=== PATIENT | female | born 1940 | race Caucasian/White ===

== ENCOUNTER 2017-07-17 14:00 | Emergency (ER) | payer MEDICARE, BC ==
--- NOTE | 2017-07-17 14:13 | EDM.PDOC ---
ED HPI GENERAL MEDICAL PROBLEM - General Chief Complaint: Upper Extremity Injury/Pain Stated Complaint: left shoulder pain Time Seen by Provider: 07/17/17 14:08 Source of Information: Reports: Patient History Limitations: Reports: No Limitations - History of Present Illness INITIAL COMMENTS - FREE TEXT/NARRATIVE: This patient is a 76 year old female that presents to the ER. Patient reports that she was in the kitchen last night and slipped on one of their rugs. Patient reports she fell to the floor and landed on her left arm. Patient reports having left arm pain. Patient has her arm a home made sling. Patient has left arm in an arm sling position. Patient denies hitting head, loc, n, v, vision changes. Patient denies neck pain. Denies any other pain locations other than left upper/mid arm. Pulses +2, cap refill <2 sec, sensory intact. Neurovascular intact. Motion limited to the left shoulder due to pain of the humerus location. Onset Date: 07/16/17 Location: Reports: Upper Extremity, Left Severity: Mild Improves with: Reports: Immobilization Worsens with: Reports: Movement Associated Symptoms: Denies: Confusion, Chest Pain, Cough, cough w sputum, Diaphoresis, Fever/Chills, Headaches, Loss of Appetite, Malaise, Nausea/Vomiting , Rash, Seizure, Shortness of Breath, Syncope, Weakness Left Upper Arm Pain Score (Numeric/FACES): 7 - Related Data Allergies Allergy/AdvReac Type Severity Reaction Status Date / Time No Known Allergies Allergy Verified 07/17/17 14:10 Home Meds: Home Meds Albuterol [Ventolin HFA] 2 puff INH QID 07/17/17 [History] Aspirin [Halfprin] 81 mg PO DAILY 07/17/17 [History] Clopidogrel Bisulfate [Clopidogrel] 75 mg PO DAILY 07/17/17 [History] Cyanocobalamin (Vitamin B-12) [B-12 Compliance] 2,000 mcg IJ Q30D 07/17/17 [ History] Folic Acid 1 mg PO DAILY 07/17/17 [History] Losartan Potassium 100 mg PO DAILY 07/17/17 [History] Metoprolol Succinate 50 mg PO DAILY 07/17/17 [History] Simvastatin [Zocor] 40 mg PO BEDTIME 07/17/17 [History] Triamterene/Hydrochlorothiazid [Triamterene-HCTZ 37.5-25 MG] 1 each PO DAILY [History] Review of Systems - Review of Systems Review Of Systems: See Below Constitutional: Reports: No Symptoms Eyes: Reports: No Symptoms Ears: Reports: No Symptoms Nose: Reports: No Symptoms Mouth/Throat: Reports: No Symptoms Respiratory: Reports: No Symptoms Cardiovascular: Reports: No Symptoms GI/Abdominal: Reports: No Symptoms Genitourinary: Reports: No Symptoms Musculoskeletal: Reports: Arm Pain (left upper arm pain) Skin: Reports: No Symptoms Neurological: Reports: No Symptoms Psychiatric: Reports: No Symptoms ED EXAM, GENERAL - Physical Exam Exam: See Below Exam Limited By: No Limitations General Appearance: Alert, WD/WN, No Apparent Distress Eye Exam: Bilateral Eye: EOMI, Normal Inspection, PERRL Ears: Normal External Exam, Normal Canal, Hearing Grossly Normal, Normal TMs Ear Exam: Bilateral Ear: Auricle Normal, Canal Normal, TM normal Nose: Normal Inspection, Normal Mucosa, No Blood Throat/Mouth: Normal Inspection, Normal Lips, Normal Teeth, Normal Gums, Normal Oropharynx, Normal Voice, No Airway Compromise Head: Atraumatic, Normocephalic Neck: Normal Inspection, Supple, Non-Tender, Full Range of Motion Respiratory/Chest: No Respiratory Distress, Lungs Clear, Normal Breath Sounds, No Accessory Muscle Use Cardiovascular: Normal Peripheral Pulses, Regular Rate, Rhythm, No Edema, No Gallop, No JVD, No Murmur, No Rub Peripheral Pulses: 2+: Radial (L), Radial (R) GI/Abdominal: Soft, Non-Tender Back Exam: Normal Inspection, Full Range of Motion. No: CVA Tenderness (L), CVA Tenderness (R), Decreased Range of Motion, Muscle Spasm, Paraspinal Tenderness, Vertebral Tenderness Extremities: No Pedal Edema, Normal Capillary Refill, Limited Range of Motion ( due to pain left shoulder. ), Other (left arm in arm sling position. Pain, tenderness to central and proximal 1/3 humerus. ) Neurological: Alert, Oriented, Normal Gait, No Motor/Sensory Deficits Psychiatric: Normal Affect, Normal Mood Skin Exam: Warm, Dry, Intact, Normal Color, No Rash Lymphatic: No Adenopathy Course - Vital Signs Last Recorded V/S: Last Vital Signs Temp 96.7 F 07/17/17 14:03 Pulse 67 07/17/17 14:03 Resp 16 07/17/17 14:03 BP 161/78 H 07/17/17 14:03 Pulse Ox 95 07/17/17 14:03 - Orders/Labs/Meds Orders: Active Orders 24 hr Category Date Time Status Humerus Lt [CR] Stat Exams 07/17/17 14:08 Taken Meds: Medications Discontinued Medications Generic Name Dose Route Start Last Admin Trade Name Freq PRN Reason Stop Dose Admin Hydrocodone Bitart/Acetaminophen 3 packet 07/17/17 14:15 Take Home: Acetaminophen/Hydrocod, 2 Tab Pack PO 07/17/17 14:16 ONETIME ONE Hydrocodone Bitart/Acetaminophen 1 tab 07/17/17 14:15 [place] 325-5 Mg PO 07/17/17 14:16 ONETIME ONE - Radiology Interpretation Free Text/Narrative:: left humerus: Fx left humeral head. Not displaced. No dislocation. Departure - Departure Time of Disposition: 14:39 Disposition: Home, Self-Care 01 Condition: Good Clinical Impression: Fracture of humerus Qualifiers: Encounter type: initial encounter Humerus Location: proximal Fracture type: closed Fracture morphology: unspecified fracture morphology Laterality: left Qualified Code(s): S42.202A - Unspecified fracture of upper end of left humerus , initial encounter for closed fracture - Discharge Information Instructions: Humerus Fracture Treated With Immobilization Forms: ED Department Discharge Additional Instructions: Followup with your primary care provider Followup with orthopedic by calling [facility] or [facility] for appointment Return to the ER for worsening of condition or any emergent concerns Rest Ice Elevate Arm sling Naproxen or Motrin for pain as needed - My Orders Last 24 Hours: My Active Orders 07/17/17 14:08 Humerus Lt [CR] Stat - Assessment/Plan Last 24 Hours: My Active Orders 07/17/17 14:08 Humerus Lt [CR] Stat Plan: PLEASE SEE RN NOTE FOR PFSH.
[2017-07-17] MEDS ORDERED: Acetaminophen/HYDROcodone 325-5 MG Tab PO ONE (14:15)
[2017-07-17] MEDS ORDERED: Take Home: Acetaminophen/HYDROcodone 325-5 MG, 2 Tab Pack PO ONE (14:15)
== END 2017-07-17 14:55 | disposition home or self-care (01) ==
LOC: CC.ED 14:00
DX: S42.202A Unspecified fracture of upper end of left humerus, initial encounter for closed fracture (principal); Z79.82 Long term (current) use of aspirin; Z79.899 Other long term (current) drug therapy; W01.0XXA Fall on same level from slipping, tripping and stumbling without subsequent striking against object, initial encounter; Y92.000 Kitchen of unspecified non-institutional (private) residence as the place of occurrence of the external cause
CPT/HCPCS: 73060-LT; 99283

== ENCOUNTER 2017-08-22 11:48 | Emergency (ER) | payer MEDICARE, BC ==
--- NOTE | 2017-08-22 12:09 | EDM.PDOC ---
ED HPI GENERAL MEDICAL PROBLEM - General Chief Complaint: Skin Complaint Stated Complaint: redness to left arm Time Seen by Provider: 08/22/17 11:55 Source of Information: Reports: Patient History Limitations: Reports: No Limitations - History of Present Illness INITIAL COMMENTS - FREE TEXT/NARRATIVE: Has had rash to the anticubital area of the left arm. She Has fracture of the left humerus and has had arm in a sling and she has noted over the last week or more this rash is red and seems to be spreading. Not warm to touch. Does itch and burn at times. No open areas or bleeding to the area. She denies any fever with this. States that the arm pain has improved since falling. Onset: Gradual Quality: Reports: Burning, Other (itching) - Related Data Allergies Allergy/AdvReac Type Severity Reaction Status Date / Time No Known Allergies Allergy Verified 08/22/17 11:50 Home Meds: Home Meds Albuterol [Ventolin HFA] 2 puff INH QID PRN 07/17/17 [History] Aspirin [Halfprin] 81 mg PO DAILY 07/17/17 [History] Clopidogrel Bisulfate [Clopidogrel] 75 mg PO DAILY 07/17/17 [History] Cyanocobalamin (Vitamin B-12) [B-12 Compliance] 2,000 mcg IJ Q30D 07/17/17 [ History] Folic Acid 1 mg PO DAILY 07/17/17 [History] Losartan Potassium 100 mg PO DAILY 07/17/17 [History] Metoprolol Succinate 50 mg PO DAILY 07/17/17 [History] Simvastatin [Zocor] 40 mg PO DAILY 07/17/17 [History] Triamterene/Hydrochlorothiazid [Triamterene-HCTZ 37.5-25 MG] 1 each PO DAILY [History] Cholecalciferol (Vitamin D3) [Vitamin D3] 5,000 unit PO DAILY 08/22/17 [History] Past Medical History Musculoskeletal History: Reports: Other (See Below) (fracture of left humerus) Social & Family History - Tobacco Use Smoking Status *Q: Current Every Day Smoker Years of Tobacco use: 55 Packs/Tins Daily: 1 - Caffeine Use Caffeine Use: Reports: Coffee - Alcohol Use Days Per Week of Alcohol Use: 7 Number of Drinks Per Day: 2 Total Drinks Per Week: 14 - Recreational Drug Use Recreational Drug Use: Yes ED ROS GENERAL - Review of Systems Review Of Systems: See Below Constitutional: Reports: No Symptoms HEENT: Reports: No Symptoms Respiratory: Reports: No Symptoms Cardiovascular: Reports: No Symptoms GI/Abdominal: Reports: No Symptoms : Reports: No Symptoms Musculoskeletal: Reports: Other (fracture of left humerus) Skin: Reports: Rash (to the left anticubital area.) Neurological: Reports: No Symptoms ED EXAM, SKIN/RASH Exam: See Below Exam Limited By: No Limitations General Appearance: Alert, WD/WN, No Apparent Distress Respiratory/Chest: No Respiratory Distress, Lungs Clear, Normal Breath Sounds Cardiovascular: Normal Peripheral Pulses, Regular Rate, Rhythm, No Edema Skin: Warm, Dry, Intact, Rash (red, non raised rash to the anticubital area of the left arm. Sensitive to touch. No open areas or bleeding.) Course - Vital Signs Last Recorded V/S: Last Vital Signs Temp 97.5 F 08/22/17 11:50 Pulse 66 08/22/17 11:50 Resp 18 08/22/17 11:50 BP 151/73 H 08/22/17 11:50 Pulse Ox 96 08/22/17 11:50 Departure - Departure Time of Disposition: 12:10 Disposition: Home, Self-Care 01 Condition: Good Clinical Impression: Contact dermatitis Qualifiers: Contact dermatitis type: irritant Contact dermatitis trigger: unspecified trigger Qualified Code(s): L24.9 - Irritant contact dermatitis, unspecified cause - Discharge Information Instructions: Rash, Pruritus Additional Instructions: use hydrocortsone twice a day use bendadryl cream twice a day. Alternate with the hydrocortisone cream. Keep wash cloth or other fabric between the folds of skin to keep dry and prevent further irritation. - Problem List & Annotations (1) Contact dermatitis SNOMED Code(s): 67913978 Code(s): L25.9 - UNSPECIFIED CONTACT DERMATITIS, UNSPECIFIED CAUSE Status: Acute Priority: High Qualifiers: Contact dermatitis type: irritant Contact dermatitis trigger: unspecified trigger Qualified Code(s): L24.9 - Irritant contact dermatitis, unspecified cause - Problem List Review Problem List Initiated/Reviewed/Updated: Yes
== END 2017-08-22 12:27 | disposition home or self-care (01) ==
LOC: CC.ED 11:48
DX: L24.9 Irritant contact dermatitis, unspecified cause (principal); Z79.899 Other long term (current) drug therapy; F17.210 Nicotine dependence, cigarettes, uncomplicated
CPT/HCPCS: 99282

== ENCOUNTER 2017-11-08 16:09 | Observation (INO) | payer MEDICARE, BC ==
[2017-11-08 17:01] LABS: CHLORIDE,CL 104 mEq/L (98-106); SODIUM,NA 141 mEq/L (136-145)
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
[2017-11-08] MEDS ORDERED: Sodium Chloride 0.9% 10 ML Syringe FLUSH PRN (18:33)
[2017-11-08] MEDS ORDERED: Temazepam 15 MG Cap PO PRN (18:33)
[2017-11-08] MEDS ORDERED: Lactated Ringers 1,000 ML IV SCH (18:33)
[2017-11-08] MEDS ORDERED: Acetaminophen 325 MG Tab PO PRN (18:33)
[2017-11-08] MEDS ORDERED: Promethazine 25 MG in Sodium Chloride 0.9% 50 ML IV PRN (18:33)
[2017-11-08] MEDS ORDERED: Magnesium Hydroxide 400 MG/5 ML Susp 30 ML Cup PO PRN (18:33)
[2017-11-08] MEDS ORDERED: Enoxaparin 40 MG/0.4 ML Syringe SUBCUT SCH (18:33)
[2017-11-08] MEDS ORDERED: Meclizine 12.5 MG Tab PO PRN (18:33)
[2017-11-08] MEDS ORDERED: Ondansetron 4 MG Tab.DIS PO PRN (18:33)
[2017-11-08] MEDS ORDERED: Albuterol 8 GM Inhaler INH PRN (20:04)
[2017-11-08] MEDS ORDERED: CYANOCOBALAMIN 2000 MCG IJ SCH (20:15)
[2017-11-08] MEDS ORDERED: [UNRECOGNIZED DRUG - OTHER] IJ SCH (20:15)
[2017-11-08] MEDS: Losartan 100 MG Tab**OWN MED PO SCH (22:17)
[2017-11-08] MEDS: METOPROLOL SUCCINATE 50 MG PO SCH (22:18)
[2017-11-09] MEDS ORDERED: HYDROCHLOROTHIAZID PO SCH (08:00)
[2017-11-09] MEDS ORDERED: Aspirin 81 MG Tab.EC**OWN MED PO SCH (08:00)
[2017-11-09] MEDS ORDERED: Cholecalciferol (Vitamin D3) 1,000 Unit Tab PO SCH (08:00)
[2017-11-09] MEDS ORDERED: Simvastatin 40 MG Tab**OWN MED PO SCH (08:00)
[2017-11-09] MEDS ORDERED: Folic Acid 1 MG Tab**OWN MED PO SCH (08:00)
[2017-11-09] MEDS ORDERED: TRIAMTERENE PO SCH (08:00)
[2017-11-09] MEDS ORDERED: Clopidogrel 75 MG Tab**OWN MED PO SCH (08:00)
[2017-11-09 08:06] LABS: CHLORIDE,CL 108 mEq/L (98-106); SODIUM,NA 143 mEq/L (136-145)
[2017-11-09] MEDS: Losartan 100 MG Tab**OWN MED PO SCH (08:20)
[2017-11-09] MEDS: METOPROLOL SUCCINATE 50 MG PO SCH (08:20)
--- NOTE | 2017-11-09 08:53 | PN ---
DATE: 11/09/2017 S: La Ya came in with marked dizziness. CT of the head was normal. O: NECK: Supple. CHEST: Clear. CARDIAC: Regular. 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 P: PT and appropriate treatment. KASEY /[id number]
[2017-11-09] MEDS ORDERED: Cyanocobalamin (Vitamin B12) 1,000 MCG/ML SDV SUBCUT SCH (09:00)
--- NOTE | 2017-11-09 11:35 | PCM.DCSUM1 ---
Discharge Summary - Discharge Data Discharge Date: 11/09/17 Discharge Disposition: Home, Self-Care 01 Condition: Good - Discharge Diagnosis/Problem(s) (1) Vertigo SNOMED Code(s): 004064836 ICD Code: R42 - DIZZINESS AND GIDDINESS Status: Acute Priority: High Current Visit: Yes - Discharge Plan Home Medications: Home Meds Albuterol [Ventolin HFA] 2 puff INH QID PRN 07/17/17 [History] Aspirin [Halfprin] 81 mg PO DAILY 07/17/17 [History] Clopidogrel Bisulfate [Clopidogrel] 75 mg PO DAILY 07/17/17 [History] Cyanocobalamin (Vitamin B-12) [B-12 Compliance] 2,000 mcg IJ Q30D 07/17/17 [ History] Folic Acid 1 mg PO DAILY 07/17/17 [History] Losartan Potassium 100 mg PO DAILY 07/17/17 [History] Metoprolol Succinate 50 mg PO DAILY 07/17/17 [History] Simvastatin [Zocor] 40 mg PO DAILY 07/17/17 [History] Triamterene/Hydrochlorothiazid [Triamterene-HCTZ 37.5-25 MG] 1 each PO DAILY [History] Cholecalciferol (Vitamin D3) [Vitamin D3] 5,000 unit PO DAILY 08/22/17 [History] Patient Handouts: Benign Positional Vertigo, Vertigo, [id number] Forms: ED Department Discharge Referrals: Harrison Banks MD [Primary Care Provider] - - Patient Data Vitals - Most Recent: Last Vital Signs Temp 97.2 F 11/09/17 07:35 Pulse 54 L 11/09/17 07:35 Resp 16 11/09/17 07:35 BP 141/49 H 11/09/17 07:35 Pulse Ox 96 11/09/17 07:35 Weight - Most Recent: 169 lb Lab Results - Last 24 hrs: Laboratory Results - last 24 hr 11/08/17 11/09/17 11/09/17 Range/Units 19:08 07:00 07:15 WBC 4.9 L (5.0-10.0) 10^3/uL RBC 3.92 L (4.00-5.50) 10^6/uL Hgb 13.4 (12.0-16.0) g/dL Hct 39.9 (37.0-47.0) % MCV 101.8 H (82.0-94.0) fL MCH 34.2 H (27.0-32.0) pg MCHC 33.6 (33.0-38.0) g/dL RDW Coeff of Jax 13.2 (11.0-15.0) % Plt Count 233 (150-400) 10^3/uL Neut % (Auto) 34.6 L (35-85) % Lymph % (Auto) 47.5 (10-55) % [place] % (Auto) 14.0 (0-16) % Eos % (Auto) 3.3 (0-5) % Baso % (Auto) 0.6 (0-3) % Neut # (Auto) 1.68 L (1.80-7.00) 10^3/uL Lymph # (Auto) 2.31 (1.00-4.80) 10^3/uL [place] # (Auto) 0.68 (0.00-0.80) 10^3/uL Eos # (Auto) 0.16 (0.00-0.45) 10^3/uL Baso # (Auto) 0.03 10^3/uL Sodium 143 (136-145) mEq/L Potassium 3.9 (3.5-5.0) mEq/L Chloride 108 H (98-106) mEq/L Carbon Dioxide 27 (21-32) mmol/L BUN 24 H (7-18) mg/dL Creatinine 0.9 (0.6-1.0) mg/dL Est Cr Clr Drug Dosing 43.30 mL/min Estimated GFR (MDRD) > 60 (>=60) mL/min Glucose 93 (75-99) mg/dL Calcium 8.7 (8.4-10.1) mg/dL Urine Color Light yellow (YELLOW) Urine Appearance Clear (CLEAR) Urine pH 5.0 (4.5-8.0) Ur Specific [place] 1.025 H (1.003-1.020) Urine Protein Trace H (NEGATIVE) mg/dL Urine Glucose (UA) Negative (NEGATIVE) mg/dL Urine Ketones Negative (NEGATIVE) mg/dL Urine Occult Blood Trace-intact H (NEGATIVE) Urine Nitrite Negative (NEGATIVE) Urine Bilirubin Negative (NEGATIVE) Urine Urobilinogen 0.2 (0.2-1.0) EU/dL Ur Leukocyte Esterase Negative (NEGATIVE) Urine RBC 0-5 (0-5) /HPF Urine WBC 0-5 (0-5) /HPF Ur Squamous Epith Cells Occasional H (NOT SEEN) /HPF Med Orders - Current: Current Medications Acetaminophen (Tylenol) 650 mg PO Q4H PRN PRN Reason: Pain (Mild 1-3)/fever Last Admin: 11/08/17 22:18 Dose: 650 mg Albuterol (Ventolin Hfa) 0 gm INH QID PRN PRN Reason: Dyspnea Aspirin (Halfprin) 81 mg PO DAILY [facility] Last Admin: 11/09/17 08:20 Dose: 81 mg Cholecalciferol (Vitamin D3) 2,000 units PO DAILY [facility] Last Admin: 11/09/17 08:24 Dose: Not Given Clopidogrel Bisulfate (Plavix) 75 mg PO DAILY [facility] Last Admin: 11/09/17 08:20 Dose: 75 mg Cyanocobalamin (Vitamin B12) 2,000 mcg SUBCUT Q30D [facility] Last Admin: 11/09/17 11:33 Dose: 2,000 mcg Enoxaparin Sodium (Lovenox) 40 mg SUBCUT Q24H [facility] Last Admin: 11/08/17 19:04 Dose: 40 mg Folic Acid (Folic Acid) 1 mg PO DAILY [facility] Last Admin: 11/09/17 08:20 Dose: 1 mg Lactated Ringer's (Ringers, Lactated) 1,000 mls @ 75 mls/hr IV ASDIRECTED [facility] Last Admin: 11/08/17 19:15 Dose: 75 mls/hr Promethazine HCl 25 mg/ Sodium (Chloride) 51 mls @ 100 mls/hr IV Q6H PRN PRN Reason: Nausea/Vomiting Losartan Potassium (Cozaar) 100 mg PO DAILY [facility] Last Admin: 11/09/17 08:20 Dose: 100 mg Magnesium Hydroxide (Milk Of Magnesia) 30 ml PO Q12H PRN PRN Reason: Constipation Meclizine HCl (Antivert) 25 mg PO TID PRN PRN Reason: Dizziness Last Admin: 11/08/17 19:46 Dose: 25 mg Metoprolol Succinate [Metoprolol Succinate] 50 Mg) Own Med 50 mg PO DAILY [facility] Last Admin: 11/09/17 08:20 Dose: 50 mg Triamterene/Hydrochlorothiazid [ Triamterene-Hctz 37. 5-25 Own Med 1 each PO DAILY [facility] Last Admin: 11/09/17 08:19 Dose: 1 each Ondansetron HCl (Zofran Odt) 4 mg PO Q4H PRN PRN Reason: nausea, able to take PO Simvastatin (Zocor) 40 mg PO DAILY [facility] Last Admin: 11/09/17 08:20 Dose: 40 mg Sodium Chloride (Saline Flush) 10 ml FLUSH ASDIRECTED PRN PRN Reason: Keep Vein Open Temazepam (Restoril) 15 mg PO BEDTIME PRN PRN Reason: Sleep Discontinued Medications Non-Formulary Medication (Cyanocobalamin (Vitamin B-12) [B-12 Compliance]) 2, 000 mcg IJ Q30D [facility] Last Admin: 11/08/17 22:21 Dose: Not Given *Q Meaningful Use (DIS) - VTE *Q VTE Criteria *Q: - Stroke *Q Stroke Criteria *Q: - AMI *Q AMI Criteria *Q:
== END 2017-11-09 13:24 | disposition home or self-care (01) ==
LOC: CC.ED 16:09 → CC.MS 17:08 → UNDOADMOB 17:08 → CC.MS 18:33
PROVIDERS: ADMIT Physician Assistant Medical; ATTEND General Practice
DX: R42 Dizziness and giddiness (principal); I10 Essential (primary) hypertension; E78.00 Pure hypercholesterolemia, unspecified; F41.9 Anxiety disorder, unspecified; E55.9 Vitamin D deficiency, unspecified; J45.909 Unspecified asthma, uncomplicated; Z79.82 Long term (current) use of aspirin; Z79.899 Other long term (current) drug therapy; F17.210 Nicotine dependence, cigarettes, uncomplicated
CPT/HCPCS: 36415; 70450; 80048; 80053; 81001; 82550; 83615; 84484; 85025; 85610; 85730; 93005; 96360; 96361; 96372; 97112-GP; 99284; A9270-GY; G0378; J1650; J3420; J7120

== ENCOUNTER 2019-12-09 10:38 | Emergency (ER) | payer MEDICARE, BC ==
--- NOTE | 2019-12-09 11:06 | EDM.PDOC ---
ED HPI GENERAL MEDICAL PROBLEM - General Chief Complaint: General Stated Complaint: mouth sores Time Seen by Provider: 12/09/19 10:40 Source of Information: Reports: Patient History Limitations: Reports: No Limitations - History of Present Illness INITIAL COMMENTS - FREE TEXT/NARRATIVE: Patient to the emergency department complaint of irritation in her mouth for the past 3 days. The patient denies any ear, nose, throat symptoms denies any fever chills she denies any neck, back pain or stiffness she denies abdominal pain no nausea vomit diarrhea denies any chest pain or shortness of breath no other symptoms Onset: Gradual Duration: Day(s): (3 days) Location: Reports: Other (Mouth) Quality: Reports: Ache, Burning Severity: Mild Improves with: Reports: None Worsens with: Reports: Eating Associated Symptoms: Denies: Cough, Fever/Chills, Nausea/Vomiting Treatments ELECTROTHERAPIST: Reports: Other (see below) (none) Oral/Mouth Pain Score (Numeric/FACES): 4 - Related Data Allergies Allergy/AdvReac Type Severity Reaction Status Date / Time No Known Allergies Allergy Verified 12/09/19 10:40 Home Meds: Home Meds Albuterol [Ventolin HFA] 2 puff INH QID PRN 07/17/17 [History] Aspirin [Halfprin] 81 mg PO DAILY 07/17/17 [History] Clopidogrel Bisulfate [Clopidogrel] 75 mg PO DAILY 07/17/17 [History] Cyanocobalamin (Vitamin B-12) [B-12 Compliance] 2,000 mcg IJ Q30D 07/17/17 [ History] Folic Acid 1 mg PO DAILY 07/17/17 [History] Losartan Potassium 100 mg PO DAILY 07/17/17 [History] Metoprolol Succinate 50 mg PO DAILY 07/17/17 [History] Simvastatin [Zocor] 40 mg PO DAILY 07/17/17 [History] Triamterene/Hydrochlorothiazid [Triamterene-HCTZ 37.5-25 MG] 1 each PO DAILY [History] Cholecalciferol (Vitamin D3) [Vitamin D3] 5,000 unit PO DAILY 08/22/17 [History] Clotrimazole [Mycelex] 10 mg PO 5XDAY 8 Days #40 everette 12/09/19 [Rx] Past Medical History HEENT History: Reports: Cataract Cardiovascular History: Reports: Aneurysm, High Cholesterol, Hypertension Respiratory History: Reports: Asthma, SOB Gastrointestinal History: Reports: None Genitourinary History: Reports: Renal Calculus MEDIA SPECIALIST History: Reports: Spontaneous Musculoskeletal History: Reports: Other (See Below) Psychiatric History: Reports: Anxiety, Panic Attack Endocrine/Metabolic History: Reports: Vitamin D Deficiency - Past Surgical History HEENT Surgical History: Reports: Tonsillectomy Cardiovascular Surgical History: Reports: Carotid Endarterectomy Respiratory Surgical History: Reports: None GI Surgical History: Reports: Colonoscopy Female Surgical History: Reports: D&C Endocrine Surgical History: Reports: None Social & Family History - Family History Family Medical History: Noncontributory - Tobacco Use Smoking Status *Q: Current Every Day Smoker Years of Tobacco use: 60 Packs/Tins Daily: 2 - Caffeine Use Caffeine Use: Reports: None - Alcohol Use Days Per Week of Alcohol Use: 7 Number of Drinks Per Day: 1 Total Drinks Per Week: 7 - Recreational Drug Use Recreational Drug Use: No ED ROS GENERAL - Review of Systems Review Of Systems: See Below Constitutional: Reports: No Symptoms. Denies: Fever, Chills HEENT: Reports: Other (Soreness in mouth). Denies: Ear Pain, Nose Pain, Throat Pain, Throat Swelling Respiratory: Reports: No Symptoms. Denies: Shortness of Breath Cardiovascular: Reports: No Symptoms. Denies: Chest Pain Endocrine: Reports: No Symptoms GI/Abdominal: Reports: No Symptoms. Denies: Abdominal Pain, Nausea, Vomiting : Reports: No Symptoms Musculoskeletal: Reports: No Symptoms. Denies: Neck Pain, Back Pain Skin: Reports: No Symptoms. Denies: Rash Neurological: Reports: No Symptoms ED EXAM, GENERAL - Physical Exam Exam: See Below Exam Limited By: No Limitations General Appearance: Alert, WD/WN, No Apparent Distress Ears: Normal External Exam, Normal Canal, Hearing Grossly Normal, Normal TMs Nose: Normal Inspection, Normal Mucosa Throat/Mouth: Normal Lips, Normal Gums, Normal Voice, No Airway Compromise, Inflammation Neck: Normal Inspection, Supple, Non-Tender, Full Range of Motion Respiratory/Chest: No Respiratory Distress, Lungs Clear, Normal Breath Sounds, Chest Non-Tender Cardiovascular: Normal Peripheral Pulses, Regular Rate, Rhythm Peripheral Pulses: 2+: Radial (L) GI/Abdominal: Soft, Non-Tender Back Exam: Normal Inspection, Full Range of Motion Extremities: Normal Inspection, Normal Range of Motion Neurological: Alert, Oriented, Normal Cognition, Normal Gait, No Motor/Sensory Deficits Psychiatric: Normal Affect, Normal Mood Skin Exam: Warm, Dry, Intact, Normal Color Course - Vital Signs Text/Narrative:: Patient was evaluated in the emergency department, the patient has a stomatitis. The patient will be given clotrimazole trouch 5 times a day 10 days. The patient will be advised to follow-up in the clinic in 1 week return emergency department as needed Last Recorded V/S: Last Vital Signs Temp 37.1 C 12/09/19 10:40 Pulse 66 12/09/19 10:40 Resp 18 12/09/19 10:40 BP 146/63 H 12/09/19 10:40 Pulse Ox 98 12/09/19 10:40 Departure - Departure Time of Disposition: 10:59 Disposition: Home, Self-Care 01 Condition: Good Clinical Impression: Stomatitis - Discharge Information *PRESCRIPTION DRUG MONITORING PROGRAM REVIEWED*: Not Applicable *COPY OF PRESCRIPTION DRUG MONITORING REPORT IN PATIENT FENG: Not Applicable Prescriptions: Clotrimazole [Mycelex] 10 mg PO 5XDAY 8 Days #40 everette Instructions: Stomatitis, [id number] Forms: ED Department Discharge Additional Instructions: follow up with family doctor in 1 week return to ER as needed take all of your medication as written Sepsis Event Note - Evaluation Sepsis Screening Result: No Definite Risk - Focused Exam Vital Signs: Vital Signs Temp Pulse Resp BP Pulse Ox 12/09/19 10:40 37.1 C 66 18 146/63 H 98 Date Exam was Performed: 12/09/19 Time Exam was Performed: 11:12 - Problem List & Annotations (1) Stomatitis SNOMED Code(s): 73118871 Code(s): K12.1 - OTHER FORMS OF STOMATITIS Status: Acute Priority: Medium - Problem List Review Problem List Initiated/Reviewed/Updated: Yes - Assessment/Plan Plan: as above
== END 2019-12-09 11:15 | disposition home or self-care (01) ==
LOC: CC.ED 10:38
DX: K12.1 Other forms of stomatitis (principal); I10 Essential (primary) hypertension; E78.00 Pure hypercholesterolemia, unspecified; J45.909 Unspecified asthma, uncomplicated; F41.0 Panic disorder [episodic paroxysmal anxiety]; F17.210 Nicotine dependence, cigarettes, uncomplicated; Z79.82 Long term (current) use of aspirin; Z79.02 Long term (current) use of antithrombotics/antiplatelets; Z79.899 Other long term (current) drug therapy
CPT/HCPCS: 99282; 99283

== ENCOUNTER → 2020-02-23 | Day surgery (SDC) | payer MEDICARE, BC ==
[~2020-02-23] MED LIST: Ketamine 200 MG/20 ML MDV IV ONE; Lactated Ringers 1,000 ML IV SCH; Propofol 200 MG/20 ML SDV IV ONE
--- NOTE | 2020-02-23 12:53 | OR ---
DATE OF OPERATION: 02/23/2020 PREOPERATIVE DIAGNOSIS: 1. GASTROESOPHAGEAL REFLUX DISEASE. 2. ABDOMINAL PAIN. 3. ALTERED BOWEL HABITS. POSTOPERATIVE DIAGNOSIS: 1. GASTROESOPHAGEAL REFLUX DISEASE. 2. ABDOMINAL PAIN. 3. ALTERED BOWEL HABITS. SURGEON: Alfonso Hay MD PROCEDURE: 1. DIAGNOSTIC EGD WITH BIOPSY X1, AGUEDA. 2. FULL-LENGTH COLONOSCOPY WITH FORCEPS POLYP REMOVAL X2, BIOPSY X1. ANESTHESIA: MAC. COMPLICATIONS: None. SPECIMEN: 1. Duodenal bulb biopsy. 2. Antral AGUEDA. 3. Sessile colon polyps x2, each less than 0.5 cm. 4. Splenic flexure biopsy x1. FINDINGS: 1. Full-length EGD. 2. Heterotopic gastric tissue, duodenal bulb. 3. Duodenitis, mild. 4. Full-length colonoscopy. 5. Sessile polyps x2, each less than 0.5 cm. 6. Minimal colitis at splenic flexure, likely ischemic. 7. Internal hemorrhoids. RECOMMENDATIONS: Medical followup with Dr. Banks. Routine followup colonoscopy in 5 years should the patient desire. INDICATIONS: The patient has been having some ongoing issues with reflux and abdominal pain. She does have altered bowel habits at times. Dr. Banks sent her for diagnostic upper and lower scopes. DESCRIPTION OF PROCEDURE: The patient was prepped and draped, placed in the left lateral decubitus position. A lubricated Olympus gastroscope was inserted over a bit, advanced to cricopharyngeus area, and easily intubated in the esophagus. The esophageal lining was benign in its entire course. The Z-line was crisp and sharp at 40 cm. No spontaneous reflux was seen. There was no distal esophagitis, stricturing, ulceration, or Baig's changes. The scope was advanced into the stomach, through the pylorus, and into the second portion of the duodenum. This was benign. The duodenal bulb had some mild duodenitis associated with her overlying heterotopic gastric tissue. Biopsy was taken. The scope was brought back into the stomach. The entire gastric lining was evaluated with and without retroflexion of the scope. I could find no other polyps, masses, ulcerations, or signs of peptic ulcer disease. A CLOtest was obtained. Air was then suctioned from the stomach and the scope removed without complication. A lubricated Olympus colonoscope was then inserted and with relative ease advanced to the cecum. Direct visualization of the ileocecal valve was accomplished. It was very difficult to get deep into the cecal pouch. The patient's prep was marginal. There was liquid stool throughout. Some areas were difficult to see and smaller lesions certainly could have been missed. Upon withdrawal, the cecum, ascending colon appeared benign. Right at the distal ascending colon, the patient had a small sessile polyp approximately 3 to 4 mm, removed in its entirety with a forceps. The rest of the transverse colon was benign. At the splenic flexure, the patient had some very mild colitis, likely ischemic. We did do a biopsy of that. The descending colon was benign. In the mid sigmoid area, the patient did have her second small sessile polyp, probably about 3 mm, also removed with forceps without complication. The rest of the sigmoid and rectosigmoid junction were benign. The rectal vault was benign. Retroflexion showed prominent internal hemorrhoids, otherwise benign. Air was suctioned, scope removed without complication. ALONDRA/HI /[id number]
== END ==
LOC: CC.SDS 07:01
PROVIDERS: ATTEND Family Medicine
DX: D12.2 Benign neoplasm of ascending colon (principal); K64.8 Other hemorrhoids; K21.9 Gastro-esophageal reflux disease without esophagitis; K29.80 Duodenitis without bleeding; K52.9 Noninfective gastroenteritis and colitis, unspecified; K31.89 Other diseases of stomach and duodenum; E78.5 Hyperlipidemia, unspecified; F41.9 Anxiety disorder, unspecified; J45.909 Unspecified asthma, uncomplicated; F17.200 Nicotine dependence, unspecified, uncomplicated; I10 Essential (primary) hypertension; Z88.8 Allergy status to other drugs, medicaments and biological substances; Z11.59 Encounter for screening for other viral diseases; Z79.82 Long term (current) use of aspirin; Z79.899 Other long term (current) drug therapy
CPT/HCPCS: 43239; 45380; 87081; 88305; J2704; J7120; U0002

== ENCOUNTER 2024-04-06 13:04 | Emergency (ER) | payer MEDICARE, BC | END 2024-04-06 14:30 | disposition home or self-care (01) | LOC: CC.ED 13:04 | DX: R07.89 Other chest pain (principal); M25.552 Pain in left hip; I10 Essential (primary) hypertension; E78.00 Pure hypercholesterolemia, unspecified; F17.200 Nicotine dependence, unspecified, uncomplicated; Z88.8 Allergy status to other drugs, medicaments and biological substances; Z79.82 Long term (current) use of aspirin; Z79.51 Long term (current) use of inhaled steroids; Z79.899 Other long term (current) drug therapy | CPT/HCPCS: 71101-LT; 73562-LT; 99283 ==

== ENCOUNTER 2024-10-29 15:37 | Emergency (ER) | payer MEDICARE, BC | END 2024-10-29 16:15 | disposition home or self-care (01) | LOC: CC.ED 15:37 | DX: B34.9 Viral infection, unspecified (principal); I10 Essential (primary) hypertension; E78.00 Pure hypercholesterolemia, unspecified; Z79.899 Other long term (current) drug therapy; Z79.82 Long term (current) use of aspirin; Z88.8 Allergy status to other drugs, medicaments and biological substances | CPT/HCPCS: 87428-QW; 99283 ==

== ENCOUNTER 2025-07-06 08:52 | Day surgery (SDC) | payer MEDICARE, BC ==
[2025-07-06] MEDS: Lactated Ringers 1,000 ML IV SCH (09:15)
[2025-07-06] MEDS ORDERED: Midazolam 1 MG/ML 2 ML SDV ONE (09:40)
[2025-07-06] MEDS ORDERED: Ketamine 200 MG/20 ML MDV ONE (09:40)
[2025-07-06] MEDS ORDERED: Propofol 200 MG/20 ML SDV ONE (09:40)
[2025-07-06] MEDS ORDERED: Flumazenil 0.1 MG/ML 5 ML MDV ONE ×2 (09:40)
== END 2025-07-06 10:53 | disposition home or self-care (01) ==
LOC: CC.SDS 08:52
PROVIDERS: ATTEND Family Medicine
DX: Z12.11 Encounter for screening for malignant neoplasm of colon (principal); K62.1 Rectal polyp; K57.30 Diverticulosis of large intestine without perforation or abscess without bleeding; I10 Essential (primary) hypertension; E78.5 Hyperlipidemia, unspecified; Z88.1 Allergy status to other antibiotic agents; Z79.899 Other long term (current) drug therapy; Z86.0100 Personal history of colon polyps, unspecified
CPT/HCPCS: 00811; 45385; 88305; J2250; J2704; J3490; J7120